=== PATIENT | male | born 1980 | race Hispanic/Latino ===

== ENCOUNTER 2018-10-22 02:18 | Emergency (ER) | payer OTHER | END 2018-10-22 02:46 | LOC: EDH 02:18 | DX: S00.83XA Contusion of other part of head, initial encounter (principal); M25.571 Pain in right ankle and joints of right foot; M25.572 Pain in left ankle and joints of left foot; Z72.0 Tobacco use; W22.8XXA Striking against or struck by other objects, initial encounter; Y93.89 Activity, other specified; Y92.89 Other specified places as the place of occurrence of the external cause; Y99.8 Other external cause status ==

== ENCOUNTER 2020-02-25 15:20 | Inpatient (IN) | payer OTHER ==
[~2020-02-25] VITALS: Ht 165.1 cm; Wt 59.8 kg
[2020-02-25] MEDS ORDERED: SODIUM CHLORIDE 0.9% 1000ML 1,000 ML IV ONE ×2 (15:44→21:06)
[2020-02-25 15:50] LABS: APPEARANCE,URINE TURBID (CLEAR); BILIRUBIN,URINE NEGATIVE (NEGATIVE); COLOR,URINE BROWN (YELLOW); GLUCOSE, URINE (UA) 100 mg/dL (NEGATIVE); KETONES,URINE 15 mg/dL (NEGATIVE); LEUKOCYTE ESTERASE ,URINE SMALL (NEGATIVE); NITRATE,URINE POSITIVE (NEGATIVE); OCCULT BLOOD,URINE LARGE (NEGATIVE); PROTEIN,URINE >=300 mg/dL (NEGATIVE)
[2020-02-25 15:57] LABS: RBC,URINE >100 /HPF (0-1)
[2020-02-25 15:58] LABS: BACTERIA,URINE Few /HPF (None Seen); MUCUS,URINE Few LPF (None Seen); SQUAMOUS EPITHELIAL CELL,UR 0-2 /HPF (0-2)
[2020-02-25 16:05] LABS: BASOPHILS % (AUTO) 0.1 % (0.0-5.0); HEMATOCRIT 44.2 % (42-54); MEAN CORPUSCULAR HEMOGLOBIN 34.8 pg (27.0-33.0); MEAN CORPUSCULAR HGB CONC 35.1 g/dL (32.0-36.0); MEAN CORPUSCULAR VOLUME 99.3 fL (79-99); MONOCYTES % (AUTO) 6.2 % (3.0-13.0); NEUTROPHILS % (AUTO) 88.3 % (40.0-77.0); PLATELET COUNT (AUTO) 277 K/uL (130-400); RED BLOOD CELL COUNT(AUTO) 4.45 MIL/uL (4.50-6.20); RED CELL DISTRIBUTION WIDTH 10.9 % (11.0-15.5); WHITE BLOOD COUNT (AUTO) 16.4 K/uL (4.8-10.8)
[2020-02-25 16:15] LABS: CARBON DIOXIDE 27 mmol/L (21-32); CHLORIDE 100 mmol/L (101-111); CREATININE 2.8 mg/dL (0.5-1.5); GLOMERULAR FILTR. RATE CALC 27 mL/min (>60); GLUCOSE,RANDOM 112 mg/dL (70-105); POTASSIUM 4.9 mmol/L (3.5-5.1); SODIUM SERUM 137 mmol/L (136-145); UREA NITROGEN, BLOOD 22 mg/dL (7-18)
[2020-02-25 16:17] LABS: INR 0.95 (0.85-1.15); PARTIAL THROMBOPLASTIN TIME 26.8 SEC (26.3-35.5); PROTHROMBIN TIME 10.3 SEC (9.6-11.6)
[2020-02-25 16:20] LABS: ALANINE AMINOTRANSFERASE 47 U/L (12-78); ALBUMIN 4.6 g/dL (3.5-5.0); ASPARTATE AMINOTRANSFERASE 52 U/L (10-37); BILIRUBIN,TOTAL 1.7 mg/dL (0.2-1.0); TOTAL PROTEIN, SERUM 8.5 g/dL (6.0-8.3)
[2020-02-25] MEDS ORDERED: CEFTRIAXONE SODIUM 1 GM ONE (16:33)
[2020-02-25] MEDS ORDERED: PHENAZOPYRIDINE HCL 200 MG TABLET ONE (16:33)
[2020-02-25] MEDS ORDERED: SODIUM CHLORIDE 0.9% 100 ML IV ONE (16:34)
[2020-02-25 16:38] LABS: LIPASE < 50 U/L (114-286)
[2020-02-25] MEDS ORDERED: ACETAMINOPHEN 325 MG TAB PO PRN (18:45)
[2020-02-25] MEDS ORDERED: ONDANSETRON HCL 4 MG/2 ML VIAL IV PRN (18:45)
[2020-02-25] MEDS ORDERED: LACTULOSE 20 GM/30 ML UDCUP PO PRN (18:45)
[2020-02-25 19:41] LABS: AMPHET/METH SCREEN,URINE NEGATIVE (NEGATIVE); BARBITURATE SCREEN, URINE NEGATIVE (NEGATIVE); BENZODIAZEPINES SCREEN,URINE POSITIVE (NEGATIVE); CANNABINOID SCREEN,URINE NEGATIVE (NEGATIVE); COCAINE SCREEN,URINE POSITIVE (NEGATIVE); OPIATE SCREEN,URINE POSITIVE (NEGATIVE); PHENCYCLIDINE SCREEN,URINE NEGATIVE (NEGATIVE)
[2020-02-25] MEDS: ZOSYN 3.375GM+NS 50ML 50 ML IV SCH (21:00)
[2020-02-25] MEDS ORDERED: ZOSYN 3.375GM+NS 50ML 50 ML IV ONE (21:05)
[2020-02-25] MEDS ORDERED: FAMOTIDINE/PF 20 MG/2 ML VIAL IV ONE (21:06)
[2020-02-25] MEDS: SODIUM CHLORIDE 0.9% 1000ML 1,000 ML IV SCH (21:55)
[2020-02-25 22:26] VITALS: BP 144/88
[2020-02-25] MEDS: MORPHINE SULFATE 2 MG/ML 1ML SYG IV PRN (22:38)
[2020-02-26] MEDS: SODIUM CHLORIDE 0.9% 1000ML 1,000 ML IV SCH ×3 (02:53→18:48)
[2020-02-26] MEDS: ZOSYN 3.375GM+NS 50ML 50 ML IV SCH ×3 (04:12→21:48)
[2020-02-26 05:25] LABS: BASOPHILS % (AUTO) 0.2 % (0.0-5.0); EOSINOPHILS % (AUTO) 0.1 % (0.0-8.0); HEMATOCRIT 42.5 % (42-54); LYMPHOCYTES % (AUTO) 15.3 % (21.0-51.0); MEAN CORPUSCULAR HEMOGLOBIN 34.3 pg (27.0-33.0); MEAN CORPUSCULAR HGB CONC 33.9 g/dL (32.0-36.0); MEAN CORPUSCULAR VOLUME 101.2 fL (79-99); MONOCYTES % (AUTO) 7.9 % (3.0-13.0); NEUTROPHILS % (AUTO) 76.1 % (40.0-77.0); PLATELET COUNT (AUTO) 242 K/uL (130-400); WHITE BLOOD COUNT (AUTO) 10.8 K/uL (4.8-10.8)
[2020-02-26 05:57] LABS: CREATININE 1.1 mg/dL (0.5-1.5); POTASSIUM 3.7 mmol/L (3.5-5.1)
[2020-02-26 08:00] VITALS: BP 125/73
[2020-02-26 09:03] LABS: BILIRUBIN,DIRECT 0.3 mg/dL (0.0-0.3); BILIRUBIN,TOTAL 1.8 mg/dL (0.2-1.0); TOTAL PROTEIN, SERUM 7.6 g/dL (6.0-8.3)
[2020-02-26] MEDS ORDERED: LORAZEPAM 2 MG/ML 1 ML VIAL IVP PRN ×2 (09:45)
[2020-02-26] MEDS ORDERED: PHARMACY COMMUNICATION MISC PRN (09:45)
[2020-02-26] MEDS ORDERED: CHLORDIAZEPOXIDE HCL 25 MG CAP PO PRN ×2 (09:45)
[2020-02-26] MEDS: FAMOTIDINE 20MG TAB 20 MG TAB PO SCH (10:32)
[2020-02-26] MEDS: MORPHINE SULFATE 2 MG/ML 1ML SYG IV PRN ×2 (10:33→18:47)
[2020-02-26 12:00] VITALS: BP 126/78
--- NOTE | 2020-02-26 15:41 | NUR ---
[facility] CM met with pt and mother Vikki Castillo in room, discussed dc plans. Pt is semi-independent prior to admission, verbalized he was incarcerated for 20yrs and was released just 3 months ago, currently living w/parents. Pt verbalize they have walker, wheelchair, shower chair, nebulizer that once belong to grandmother but no longer being used. Pt verbalized he had applied for food stamp, medicare/medicaid just a few weeks ago, pending still being processed pending approval. Denies any other equipments/services. Pt is a selfpay, [facility] assisting, given [employer] packet. Feels safe to go back home, doesn't drives, parents able to assist with transportation and needs as necessary. DC plan to home once stable. CM to continue to follow up. Addendum: 02/26/20 at 1545 by ESME QUICK LVN CM Amended: Links added.
[2020-02-26 16:00] VITALS: BP 126/72
[2020-02-26 19:53] VITALS: BP 132/85
[2020-02-26 23:39] VITALS: BP 133/80
[2020-02-27] MEDS: SODIUM CHLORIDE 0.9% 1000ML 1,000 ML IV SCH ×3 (03:17→17:27)
[2020-02-27] MEDS: MORPHINE SULFATE 2 MG/ML 1ML SYG IV PRN ×3 (03:21→21:20)
[2020-02-27 03:56] VITALS: BP 130/85
[2020-02-27 05:24] LABS: BASOPHILS % (AUTO) 0.3 % (0.0-5.0); EOSINOPHILS % (AUTO) 0.3 % (0.0-8.0); HEMATOCRIT 36.5 % (42-54); LYMPHOCYTES % (AUTO) 16.7 % (21.0-51.0); MEAN CORPUSCULAR HEMOGLOBIN 34.4 pg (27.0-33.0); MEAN CORPUSCULAR HGB CONC 33.7 g/dL (32.0-36.0); MONOCYTES % (AUTO) 9.5 % (3.0-13.0); NEUTROPHILS % (AUTO) 72.9 % (40.0-77.0); PLATELET COUNT (AUTO) 202 K/uL (130-400); RED BLOOD CELL COUNT(AUTO) 3.58 MIL/uL (4.50-6.20); RED CELL DISTRIBUTION WIDTH 10.8 % (11.0-15.5); WHITE BLOOD COUNT (AUTO) 7.8 K/uL (4.8-10.8)
[2020-02-27 05:43] LABS: ALBUMIN 3.1 g/dL (3.5-5.0); BILIRUBIN,DIRECT 0.3 mg/dL (0.0-0.3); BILIRUBIN,TOTAL 0.9 mg/dL (0.2-1.0); CREATININE 0.9 mg/dL (0.5-1.5); POTASSIUM 3.7 mmol/L (3.5-5.1); TOTAL PROTEIN, SERUM 6.3 g/dL (6.0-8.3)
[2020-02-27] MEDS: ZOSYN 3.375GM+NS 50ML 50 ML IV SCH ×3 (06:13→20:03)
[2020-02-27 08:00] VITALS: BP 128/75
[2020-02-27] MEDS: POTASSIUM CHLORIDE 20 MEQ ERTAB PO SCH (10:13)
[2020-02-27] MEDS: FAMOTIDINE 20MG TAB 20 MG TAB PO SCH (10:13)
[2020-02-27] MEDS: ACETAMINOPHEN 325 MG TAB PO PRN (10:17)
--- NOTE | 2020-02-27 10:30 | NUR ---
FC FC DISCONTINUED AT THIS TIME ORDERED, TOLERATED WELL. URINE YELLOW, SCANT TINY SPECS OF SEDIMENT. DENIES DISCOMFORT
[2020-02-27 11:00] VITALS: BP 107/72
--- NOTE | 2020-02-27 13:30 | NUR ---
PT STATES NOT ABLE TO VOID, STATES HAVING PAIN AND UNABLE TO VOID. CALL PLACED TO DR SHEIKH TO MAKE AWARE, STATES TO RE-INSERT FC
--- NOTE | 2020-02-27 13:45 | NUR ---
FC RE-INSERTED USING STRICT ASEPTIC TECHNIQUE, PT TOLERATED WELL. 500 CC YELLOW URINE COLLECTED INTO DRAIN BAG, PT STATES FEELING BETTER, ABDOMEN LESS DISTENDED
--- NOTE | 2020-02-27 15:15 | NUR ---
SS services consult obtained for +UDS. RN PRODUCTION met with patient at bedside. Patient was cooperative and participated w/SS intake. Per patient report He has no pcp. He currently resides with his parents. He reports he has good family support system in place from his parents. Upon d/c his parents will provide his transportation home. He reports he has been incarcerated([facility]) throughout his life. He states he recently got out 4 months ago from his last half-way incarceration. He reports he has hx of substance use. Patient has +uds cocaine,opiates and Benzodiazepine. He states he recently got out of half-way and was doing good however recently went through a separation from his girlfriend and reports he utilize drugs as a coping mechanism d/t problems with girlfriend. He reports she is currently 2 months and he wants to work things and in agreement with seeking services for his substance use.He reports he is currently seeking services through [facility] for medicaid services and has SNAP benefits.RN PRODUCTION discussed [facility] services for mental health and [facility] services.Informed patient of intake process for outpatient services. Patient reports he is going to be a father and does want to make changes. Patient was provided with [facility] substance use disorder services brochure and patient accepted information. dc plan is home with family support;His parents will provide his transportation home.Patient offered no other needs or concerns @ this time.(Clau [place],RN PRODUCTION) Addendum: 02/27/20 at 1523 by TIKI SAINZ Amended: Links added.
[2020-02-27 16:00] VITALS: BP 118/79
[2020-02-27] MEDS: ACETAMINOPHEN-CODEINE 300/30MG TAB PO PRN ×2 (17:27→21:20)
[2020-02-27 21:00] VITALS: BP 120/67
[2020-02-27] MEDS ORDERED: HYDROMORPHONE 1 MG/1 ML AMP ONE (23:05)
[2020-02-28 00:04] VITALS: BP 129/86
[2020-02-28] MEDS: HYDROMORPHONE HCL 2 MG/ML VIAL IVP PRN ×5 (01:24→05:59)
[2020-02-28] MEDS: SODIUM CHLORIDE 0.9% 1000ML 1,000 ML IV SCH ×2 (02:17→10:29)
[2020-02-28] MEDS: MORPHINE SULFATE 2 MG/ML 1ML SYG IV PRN ×2 (02:20→10:53)
[2020-02-28] MEDS: ZOSYN 3.375GM+NS 50ML 50 ML IV SCH ×2 (04:09→13:00)
[2020-02-28 04:13] VITALS: BP 125/74
[2020-02-28 05:57] LABS: BASOPHILS % (AUTO) 0.4 % (0.0-5.0); EOSINOPHILS % (AUTO) 0.4 % (0.0-8.0); HEMATOCRIT 33.9 % (42-54); MEAN CORPUSCULAR HEMOGLOBIN 34.5 pg (27.0-33.0); MEAN CORPUSCULAR HGB CONC 34.2 g/dL (32.0-36.0); MEAN CORPUSCULAR VOLUME 100.9 fL (79-99); MONOCYTES % (AUTO) 12.5 % (3.0-13.0); NEUTROPHILS % (AUTO) 61.3 % (40.0-77.0); PLATELET COUNT (AUTO) 217 K/uL (130-400); RED BLOOD CELL COUNT(AUTO) 3.36 MIL/uL (4.50-6.20); RED CELL DISTRIBUTION WIDTH 10.7 % (11.0-15.5); WHITE BLOOD COUNT (AUTO) 5.6 K/uL (4.8-10.8)
[2020-02-28 06:12] LABS: CREATININE 0.9 mg/dL (0.5-1.5); POTASSIUM 3.9 mmol/L (3.5-5.1)
[2020-02-28 08:03] VITALS: BP 117/72
[2020-02-28] MEDS: POTASSIUM CHLORIDE 20 MEQ ERTAB PO SCH (09:30)
[2020-02-28] MEDS: FAMOTIDINE 20MG TAB 20 MG TAB PO SCH (10:27)
[2020-02-28] MEDS ORDERED: TAMS-1 PO (11:02)
[2020-02-28] MEDS ORDERED: AMOX-429 PO (11:02)
[2020-02-28 11:33] VITALS: BP 123/57
--- NOTE | 2020-02-28 13:00 | NUR ---
STAT XRAY OF L LEG ORDERED FOR PATIENT C/O 'S LEFT LEG PAIN, D/C PENDING RESULTS
[2020-02-28] MEDS: ACETAMINOPHEN 325 MG TAB PO PRN (16:59)
--- NOTE | 2020-02-28 17:00 | NUR ---
DISCHARGE INSTRUCTIONS PATIENT GIVEN DISCHARGE INSTRUCTIONS AND VERBALIZED UNDERSTANDING, RILEY BAG CHANGED TO LEG BAG AND PATIENT INSTRUCTED ON CARE , IV D/C WITH CATHETER INTACT AND SITE DRESSED, TELEMETRY REMOVED AND MONITOR UNIT NOTIFIED, REVIEWED FOLLOW-UP APPOINTMENTS WITH DR ERAZO AND MAINTAINING RILEY CATHETER, REVIEWED FOLLOWUP APPOINTMENT WITH DR KEITA , AND MEDICATIONS . NO QUESTIONS OR CONCERNS AT THIS TIME. PATIENT.PATIENT CALLED FOR [employer] GATHER. WAITING FOR FAMILY TO COME
[2020-02-28] MEDS ORDERED: TAMSULOSIN HCL 0.4 MG CAP.ER.24H PO SCH (21:00)
--- NOTE | 2020-02-29 11:47 | NUR ---
Transitional Care - Post Discharge Note NO ANSWER. Dialed number on file. Phone rings with no option to leave voicemail. Addendum: 02/29/20 at 1148 by LASHELL SAAVEDRA Amended: Links added.
== END 2020-02-28 17:55 | disposition home or self-care (01) | DRG 690 ==
LOC: EDH 15:20 → EDHIP 15:21 → 4CH 20:34
PROVIDERS: ADMIT Family Medicine; ATTEND Family Medicine
DX: N12 Tubulo-interstitial nephritis, not specified as acute or chronic (principal); N30.91 Cystitis, unspecified with hematuria; N17.9 Acute kidney failure, unspecified; S01.112A Laceration without foreign body of left eyelid and periocular area, initial encounter; F14.10 Cocaine abuse, uncomplicated; E86.0 Dehydration; K52.9 Noninfective gastroenteritis and colitis, unspecified; K57.30 Diverticulosis of large intestine without perforation or abscess without bleeding; K80.20 Calculus of gallbladder without cholecystitis without obstruction; Z20.828 Contact with and (suspected) exposure to other viral communicable diseases; Y04.0XXA Assault by unarmed brawl or fight, initial encounter; F11.10 Opioid abuse, uncomplicated; X58.XXXA Exposure to other specified factors, initial encounter; Y93.89 Activity, other specified; Y92.89 Other specified places as the place of occurrence of the external cause; Y99.8 Other external cause status
CPT/HCPCS: 36415; 70450; 73551; 74176; 76770; 80048; 80053; 80076; 80305; 81001; 82550; 83690; 85025; 85610; 85730; 87088; 87426; G0378; J0696; J1170; J2543; J3490; J7030; U0003

== ENCOUNTER 2020-03-05 15:58 | Emergency (ER) | payer SELFPAY ==
[~2020-03-05 15:58] MED LIST: AMOX-429 PO; TAMS-1 PO
[2020-03-05 16:38] LABS: BASOPHILS % (AUTO) 0.3 % (0.0-5.0); HEMATOCRIT 38.6 % (42-54); LYMPHOCYTES % (AUTO) 18.7 % (21.0-51.0); MEAN CORPUSCULAR HEMOGLOBIN 34.8 pg (27.0-33.0); MEAN CORPUSCULAR HGB CONC 33.7 g/dL (32.0-36.0); MEAN CORPUSCULAR VOLUME 103.2 fL (79-99); MONOCYTES % (AUTO) 7.2 % (3.0-13.0); NEUTROPHILS % (AUTO) 71.5 % (40.0-77.0); PLATELET COUNT (AUTO) 332 K/uL (130-400); RED BLOOD CELL COUNT(AUTO) 3.74 MIL/uL (4.50-6.20); RED CELL DISTRIBUTION WIDTH 11.5 % (11.0-15.5); WHITE BLOOD COUNT (AUTO) 7.1 K/uL (4.8-10.8)
[2020-03-05 16:44] LABS: APPEARANCE,URINE CLOUDY (CLEAR); BILIRUBIN,URINE SMALL (NEGATIVE); COLOR,URINE YELLOW (YELLOW); GLUCOSE, URINE (UA) NEGATIVE (NEGATIVE); KETONES,URINE 5 mg/dL (NEGATIVE); LEUKOCYTE ESTERASE ,URINE NEGATIVE (NEGATIVE); NITRATE,URINE NEGATIVE (NEGATIVE); OCCULT BLOOD,URINE LARGE (NEGATIVE); PH,URINE 7.5 (5.0-8.0); PROTEIN,URINE 100 mg/dL (NEGATIVE); UROBILINOGEN,URINE 0.2 mg/dL (0.2-1.0)
[2020-03-05 16:47] LABS: CREATININE 0.9 mg/dL (0.5-1.5); POTASSIUM 3.9 mmol/L (3.5-5.1)
[2020-03-05 16:52] LABS: ALBUMIN 3.7 g/dL (3.5-5.0); BILIRUBIN,TOTAL 0.6 mg/dL (0.2-1.0); TOTAL PROTEIN, SERUM 7.1 g/dL (6.0-8.3)
[2020-03-05 17:05] LABS: RBC,URINE TNTC /HPF (0-1); WBC,URINE 0-1 /HPF (0-1)
[2020-03-05 17:06] LABS: AMORPHOUS SEDIMENT,UR Moderate /LPF (None Seen); BACTERIA,URINE Rare /HPF (None Seen); SQUAMOUS EPITHELIAL CELL,UR 0-2 /HPF (0-2)
== END 2020-03-05 19:03 | disposition home or self-care (01) ==
LOC: EDH 15:58
DX: T83.098A Other mechanical complication of other urinary catheter, initial encounter (principal); R10.30 Lower abdominal pain, unspecified; Z72.0 Tobacco use
CPT/HCPCS: 36415; 80053; 81001; 85025

== ENCOUNTER 2020-03-16 13:33 | Emergency (ER) | payer SELFPAY | END 2020-03-16 14:02 | disposition home or self-care (01) | LOC: EDH 13:33 | DX: S01.112D Laceration without foreign body of left eyelid and periocular area, subsequent encounter (principal); Z48.02 Encounter for removal of sutures | CPT/HCPCS: 99281 ==

== ENCOUNTER 2021-12-25 02:48 | Emergency (ER) | payer OTHER ==
[~2021-12-25] VITALS: Ht 162.6 cm; Wt 51.3 kg
[2021-12-25] MEDS ORDERED: OCTYL 2-CYANOACRYLATE 1 EACH TP ONE (03:35)
[2021-12-25] MEDS ORDERED: LIDOCAINE HCL-MPF 2% 10ML AMP IJ ONE (03:40)
[2021-12-25 04:09] VITALS: BP 138/85
== END 2021-12-25 05:00 | disposition left against medical advice (07) ==
LOC: EDH 02:48
DX: S01.311A Laceration without foreign body of right ear, initial encounter (principal); F17.200 Nicotine dependence, unspecified, uncomplicated; W01.0XXA Fall on same level from slipping, tripping and stumbling without subsequent striking against object, initial encounter; Y93.55 Activity, bike riding; Y92.89 Other specified places as the place of occurrence of the external cause; Y99.8 Other external cause status
CPT/HCPCS: 99284; J3490